=== PATIENT | female | born 1960 | race Caucasian/White ===

== ENCOUNTER 2018-01-15 13:34 | Emergency (ER) | payer OTHER ==
[~2018-01-15] VITALS: Ht 165.1 cm; Wt 127.3 kg
[2018-01-15 13:38] VITALS: BP 151/81
[2018-01-15] MEDS ORDERED: KETOROLAC 30 MG/1 ML IM ONE (14:00)
[2018-01-15] MEDS ORDERED: KETOROLAC 30 MG/1 ML ONE (14:08)
== END 2018-01-15 14:57 | disposition home or self-care (01) ==
LOC: ED 14:55
DX: S46.012A Strain of muscle(s) and tendon(s) of the rotator cuff of left shoulder, initial encounter (principal); X58.XXXA Exposure to other specified factors, initial encounter; Y93.89 Activity, other specified; Y92.89 Other specified places as the place of occurrence of the external cause; Y99.8 Other external cause status; I10 Essential (primary) hypertension; Z87.891 Personal history of nicotine dependence
CPT/HCPCS: 73030; 96372; 99284; J1885

== ENCOUNTER 2018-02-04 08:26 | Inpatient (IN) | payer OTHER ==
[~2018-02-04] VITALS: Ht 170.2 cm; Wt 119.7 kg
[~2018-02-04 08:26] MED LIST: CIME200T6 PO; FLUO40CA2 PO; METH20TA5 PO; OLAN20TA7 PO; ZOLP10TA5 PO
[2018-02-04] MEDS ORDERED: ALBUTEROL/IPRATROPIUM 2.5MG/0.5MG, 3 ML NPPB ONE (09:00)
[2018-02-04] MEDS ORDERED: SODIUM CHLORIDE FLUSH 10ML SYR IVF ONE ×2 (09:00→12:00)
[2018-02-04] MEDS ORDERED: ALBUTEROL/IPRATROPIUM 2.5MG/0.5MG, 3 ML ONE ×2 (09:04→14:43)
[2018-02-04 10:21] LABS: MEAN CORPUSCULAR HEMOGLOBIN 31.6 pg (27.0-34.8); MEAN CORPUSCULAR HGB CONC 33.2 g/dL (32.4-35.8); MEAN CORPUSCULAR VOLUME 95.1 fL (80-100); MEAN PLATELET VOLUME 7.9 fL (7.4-10.4); PLATELET COUNT 332 x10^3/uL (130-400); RED BLOOD COUNT 3.59 x10^6/uL (3.82-5.3); RED CELL DISTRIBUTION WIDTH 15.3 % (9.6-15.2)
[2018-02-04 10:30] LABS: ALANINE AMINOTRANSFERASE 15 U/L (12-78); ALBUMIN 2.2 g/dL (3.4-5.0); ANION GAP 6 mmol/L (5-15); CALCIUM 9.2 mg/dL (8.5-10.1); CHLORIDE 107 mmol/L (98-107); CREATININE 1.03 mg/dL (0.55-1.02)
[2018-02-04 10:35] LABS: ALKALINE PHOSPHATASE 81 U/L (45-117); BILIRUBIN,TOTAL 0.3 mg/dL (0.2-1.0); TOTAL PROTEIN 6.8 g/dL (6.4-8.2); TROPONIN I < 0.015 ng/mL (0.000-0.045)
[2018-02-04 10:37] LABS: BASOPHILS # (AUTO) 0.01 x10^3/uL (0-0.1); BASOPHILS % (AUTO) 0 % (0-1); EOSINOPHILS # (AUTO) 0.15 x10^3/uL (0-0.4); EOSINOPHILS % (AUTO) 1 % (1-7); LYMPHOCYTES # (AUTO) 1.71 x10^3/uL (1-3.4); LYMPHOCYTES % (AUTO) 11 % (22-44); MD SCAN; MONOCYTES # (AUTO) 1.39 x10^3/uL (0.2-0.8); MONOCYTES % (AUTO) 9 % (2-9); NEUTROPHILS # (AUTO) 12.81 x10^3/uL (1.8-6.8); NEUTROPHILS % (AUTO) 80 % (42-75)
[2018-02-04 12:54] VITALS: BP 142/72
[2018-02-04] MEDS ORDERED: HYDROcodone/APAP 5/325 TABLET PO PRN (14:30)
[2018-02-04] MEDS ORDERED: ACETAMINOPHEN 325 MG TABLET PO PRN (14:30)
[2018-02-04] MEDS ORDERED: morphine SULFATE 10 MG/ML, 1ML IVPush PRN (14:30)
[2018-02-04] MEDS ORDERED: ZOLPIDEM 5MG TABLET PO PRN (14:30)
[2018-02-04] MEDS ORDERED: ONDANSETRON ODT 4 MG PO PRN (14:30)
[2018-02-04] MEDS ORDERED: ALBUTEROL/IPRATROPIUM 2.5MG/0.5MG, 3 ML NPPB PRN (15:00)
[2018-02-04] MEDS: GUAIFENESIN/DM 200-20MG, 10ML UDC PO PRN ×2 (15:14→22:46)
[2018-02-04] MEDS: ENOXAPARIN 40 MG/0.4 ML SQ SCH (15:14)
[2018-02-04] MEDS: ALBUTEROL/IPRATROPIUM 2.5MG/0.5MG, 3 ML NPPB SCH (20:00)
[2018-02-04 20:22] VITALS: BP 154/84
[2018-02-04] MEDS: SODIUM CHLORIDE FLUSH 10ML SYR IVF SCH (22:45)
[2018-02-04] MEDS: LACTULOSE 10 GM/15 ML UDC PO SCH (22:46)
[2018-02-05 02:13] VITALS: BP 148/85
[2018-02-05 05:09] LABS: BASOPHILS # (AUTO) 0.01 x10^3/uL (0-0.1); BASOPHILS % (AUTO) 0 % (0-1); EOSINOPHILS # (AUTO) 0.24 x10^3/uL (0-0.4); EOSINOPHILS % (AUTO) 2 % (1-7); LYMPHOCYTES # (AUTO) 1.82 x10^3/uL (1-3.4); LYMPHOCYTES % (AUTO) 13 % (22-44); MD NO; MEAN CORPUSCULAR HEMOGLOBIN 31.8 pg (27.0-34.8); MEAN CORPUSCULAR HGB CONC 33.7 g/dL (32.4-35.8); MEAN CORPUSCULAR VOLUME 94.2 fL (80-100); MEAN PLATELET VOLUME 7.9 fL (7.4-10.4); MONOCYTES # (AUTO) 1.28 x10^3/uL (0.2-0.8); MONOCYTES % (AUTO) 9 % (2-9); NEUTROPHILS # (AUTO) 10.82 x10^3/uL (1.8-6.8); NEUTROPHILS % (AUTO) 76 % (42-75); PLATELET COUNT 310 x10^3/uL (130-400); RED BLOOD COUNT 3.28 x10^6/uL (3.82-5.3); RED CELL DISTRIBUTION WIDTH 14.9 % (9.6-15.2)
[2018-02-05 05:41] LABS: ALANINE AMINOTRANSFERASE 11 U/L (12-78); ALBUMIN 1.8 g/dL (3.4-5.0); ALKALINE PHOSPHATASE 75 U/L (45-117); BILIRUBIN,TOTAL 0.3 mg/dL (0.2-1.0); CALCIUM 8.5 mg/dL (8.5-10.1); CREATININE 0.68 mg/dL (0.55-1.02); TOTAL PROTEIN 6.2 g/dL (6.4-8.2)
[2018-02-05 05:45] LABS: ANION GAP 7 mmol/L (5-15); CHLORIDE 108 mmol/L (98-107)
[2018-02-05] MEDS: ALBUTEROL/IPRATROPIUM 2.5MG/0.5MG, 3 ML NPPB SCH ×4 (07:20→19:27)
[2018-02-05] MEDS: SODIUM CHLORIDE FLUSH 10ML SYR IVF SCH ×2 (07:38→20:34)
[2018-02-05] MEDS: LACTULOSE 10 GM/15 ML UDC PO SCH ×2 (07:38→21:00)
[2018-02-05] MEDS: OLANZAPINE 10 MG TABLET PO SCH (07:38)
[2018-02-05] MEDS: METHYLPHENIDATE 10 MG TABLET PO SCH (07:38)
[2018-02-05] MEDS: FLUOXETINE HCL 20 MG CAPSULE PO SCH (07:38)
[2018-02-05 07:58] VITALS: BP 163/84
[2018-02-05] MEDS ORDERED: POTASSIUM CHLORIDE 20 MEQ TAB.ER.PRT PO SCH (09:30)
[2018-02-05] MEDS ORDERED: CEFTRIAXONE 2 GM in SODIUM CHLORIDE 0.9% 50 ML IV SCH (09:30)
[2018-02-05] MEDS: CEFTRIAXONE 2 GM in DEXTROSE 5% 50 ML IV SCH (09:31)
[2018-02-05] MEDS: FUROSEMIDE 40 MG TABLET PO SCH (09:32)
[2018-02-05 12:40] LABS: HEMOGLOBIN A1C 6.4 % (4.2-6.3)
[2018-02-05 13:49] VITALS: BP 166/98
[2018-02-05] MEDS: ENOXAPARIN 40 MG/0.4 ML SQ SCH (14:35)
[2018-02-05 19:05] VITALS: BP 150/80
[2018-02-05] MEDS ORDERED: MORPHINE SULFATE 4 MG/ML, 1ML ONE (20:27)
[2018-02-06 00:39] VITALS: BP 149/83
[2018-02-06 06:09] LABS: CHLORIDE 102 mmol/L (98-107)
[2018-02-06 06:13] LABS: MEAN CORPUSCULAR HEMOGLOBIN 31.7 pg (27.0-34.8); MEAN CORPUSCULAR HGB CONC 33.6 g/dL (32.4-35.8); MEAN CORPUSCULAR VOLUME 94.2 fL (80-100); MEAN PLATELET VOLUME 8.8 fL (7.4-10.4); PLATELET COUNT 320 x10^3/uL (130-400); RED BLOOD COUNT 3.22 x10^6/uL (3.82-5.3); RED CELL DISTRIBUTION WIDTH 14.9 % (9.6-15.2)
[2018-02-06 06:24] LABS: ALANINE AMINOTRANSFERASE 14 U/L (12-78); ALBUMIN 1.8 g/dL (3.4-5.0); ALKALINE PHOSPHATASE 81 U/L (45-117); ANION GAP 9 mmol/L (5-15); BILIRUBIN,TOTAL 0.5 mg/dL (0.2-1.0); CALCIUM 8.8 mg/dL (8.5-10.1); CREATININE 0.67 mg/dL (0.55-1.02); TOTAL PROTEIN 6.5 g/dL (6.4-8.2)
[2018-02-06 06:41] LABS: BASOPHILS # (AUTO) 0.06 x10^3/uL (0-0.1); BASOPHILS % (AUTO) 0 % (0-1); EOSINOPHILS # (AUTO) 0.19 x10^3/uL (0-0.4); EOSINOPHILS % (AUTO) 1 % (1-7); LYMPHOCYTES # (AUTO) 1.82 x10^3/uL (1-3.4); LYMPHOCYTES % (AUTO) 13 % (22-44); MD SCAN; MONOCYTES # (AUTO) 1.54 x10^3/uL (0.2-0.8); MONOCYTES % (AUTO) 11 % (2-9); NEUTROPHILS # (AUTO) 9.94 x10^3/uL (1.8-6.8); NEUTROPHILS % (AUTO) 73 % (42-75)
[2018-02-06 07:38] VITALS: BP 136/76
[2018-02-06] MEDS: ALBUTEROL/IPRATROPIUM 2.5MG/0.5MG, 3 ML NPPB SCH ×4 (07:53→19:25)
[2018-02-06] MEDS: CEFTRIAXONE 2 GM in DEXTROSE 5% 50 ML IV SCH (09:46)
[2018-02-06] MEDS: LACTULOSE 10 GM/15 ML UDC PO SCH ×3 (09:56→20:40)
[2018-02-06] MEDS: SPIRONOLACTONE 25 MG TABLET PO SCH ×2 (09:56→15:18)
[2018-02-06] MEDS: FUROSEMIDE 40 MG TABLET PO SCH ×2 (09:57→15:18)
[2018-02-06] MEDS: SODIUM CHLORIDE FLUSH 10ML SYR IVF SCH ×2 (09:57→20:40)
[2018-02-06] MEDS: METHYLPHENIDATE 10 MG TABLET PO SCH ×2 (09:57→15:18)
[2018-02-06] MEDS: FLUOXETINE HCL 20 MG CAPSULE PO SCH ×2 (09:57→15:17)
[2018-02-06] MEDS: OLANZAPINE 10 MG TABLET PO SCH ×2 (09:57→15:18)
[2018-02-06 13:13] VITALS: BP 141/72
[2018-02-06] MEDS ORDERED: ZOLPIDEM 10MG TABLET PO PRN (14:00)
[2018-02-06] MEDS: ENOXAPARIN 40 MG/0.4 ML SQ SCH (15:19)
[2018-02-06 18:55] VITALS: BP 145/85
[2018-02-06 23:49] VITALS: BP 143/69
[2018-02-07 05:46] LABS: MEAN CORPUSCULAR HEMOGLOBIN 31.6 pg (27.0-34.8); MEAN CORPUSCULAR HGB CONC 33.7 g/dL (32.4-35.8); MEAN CORPUSCULAR VOLUME 93.6 fL (80-100); MEAN PLATELET VOLUME 8.4 fL (7.4-10.4); PLATELET COUNT 347 x10^3/uL (130-400); RED BLOOD COUNT 3.24 x10^6/uL (3.82-5.3); RED CELL DISTRIBUTION WIDTH 14.5 % (9.6-15.2)
[2018-02-07 05:59] LABS: CHLORIDE 103 mmol/L (98-107)
[2018-02-07 06:08] LABS: ALANINE AMINOTRANSFERASE 15 U/L (12-78); ALBUMIN 1.9 g/dL (3.4-5.0); ALKALINE PHOSPHATASE 80 U/L (45-117); ANION GAP 7 mmol/L (5-15); BILIRUBIN,TOTAL 0.5 mg/dL (0.2-1.0); CALCIUM 8.7 mg/dL (8.5-10.1); CHOLESTEROL, TOTAL 95 mg/dL (140-239); CREATININE 0.73 mg/dL (0.55-1.02); HDL CHOL % 20 % (28-40); HDL CHOLESTEROL (DIRECT) 19 mg/dL (40-60); LDL CHOLESTEROL,CALCULATED 53 mg/dL (54-169); LDL/HDL RATIO 2.8 (0.5-3.0); TOTAL PROTEIN 6.6 g/dL (6.4-8.2); TRIGLYCERIDES 113 mg/dL (50-200); VLDL CHOLESTEROL 23 mg/dL (0-25)
[2018-02-07 06:21] LABS: BASOPHILS # (AUTO) 0.06 x10^3/uL (0-0.1); BASOPHILS % (AUTO) 0 % (0-1); EOSINOPHILS % (AUTO) 2 % (1-7); LYMPHOCYTES # (AUTO) 2.01 x10^3/uL (1-3.4); LYMPHOCYTES % (AUTO) 15 % (22-44); MD SCAN; MONOCYTES # (AUTO) 1.53 x10^3/uL (0.2-0.8); MONOCYTES % (AUTO) 11 % (2-9); NEUTROPHILS # (AUTO) 9.97 x10^3/uL (1.8-6.8); NEUTROPHILS % (AUTO) 72 % (42-75)
[2018-02-07] MEDS: ALBUTEROL/IPRATROPIUM 2.5MG/0.5MG, 3 ML NPPB SCH ×4 (06:30→19:49)
[2018-02-07 07:10] VITALS: BP 139/84
[2018-02-07] MEDS: LACTULOSE 10 GM/15 ML UDC PO SCH ×2 (08:24→20:03)
[2018-02-07] MEDS: FUROSEMIDE 40 MG TABLET PO SCH (08:25)
[2018-02-07] MEDS: OLANZAPINE 10 MG TABLET PO SCH (08:25)
[2018-02-07] MEDS: METHYLPHENIDATE 10 MG TABLET PO SCH (08:25)
[2018-02-07] MEDS: SPIRONOLACTONE 25 MG TABLET PO SCH (08:26)
[2018-02-07] MEDS: FLUOXETINE HCL 20 MG CAPSULE PO SCH (08:26)
[2018-02-07] MEDS: SODIUM CHLORIDE FLUSH 10ML SYR IVF SCH ×2 (08:26→20:03)
[2018-02-07] MEDS: CEFTRIAXONE 2 GM in DEXTROSE 5% 50 ML IV SCH (09:53)
[2018-02-07 13:04] VITALS: BP 131/84
[2018-02-07] MEDS: ENOXAPARIN 40 MG/0.4 ML SQ SCH (15:51)
[2018-02-07 19:57] VITALS: BP 118/77
[2018-02-08 01:07] VITALS: BP 125/78
[2018-02-08 05:12] LABS: BASOPHILS # (AUTO) 0.05 x10^3/uL (0-0.1); BASOPHILS % (AUTO) 0 % (0-1); EOSINOPHILS # (AUTO) 0.38 x10^3/uL (0-0.4); EOSINOPHILS % (AUTO) 3 % (1-7); LYMPHOCYTES # (AUTO) 2.19 x10^3/uL (1-3.4); LYMPHOCYTES % (AUTO) 17 % (22-44); MD NO; MEAN CORPUSCULAR HEMOGLOBIN 30.9 pg (27.0-34.8); MEAN CORPUSCULAR HGB CONC 33.1 g/dL (32.4-35.8); MEAN CORPUSCULAR VOLUME 93.6 fL (80-100); MEAN PLATELET VOLUME 8.9 fL (7.4-10.4); MONOCYTES # (AUTO) 1.33 x10^3/uL (0.2-0.8); MONOCYTES % (AUTO) 10 % (2-9); NEUTROPHILS # (AUTO) 9.07 x10^3/uL (1.8-6.8); NEUTROPHILS % (AUTO) 70 % (42-75); PLATELET COUNT 370 x10^3/uL (130-400); RED BLOOD COUNT 3.04 x10^6/uL (3.82-5.3); RED CELL DISTRIBUTION WIDTH 14.7 % (9.6-15.2)
[2018-02-08 05:20] LABS: CHLORIDE 103 mmol/L (98-107)
[2018-02-08 05:28] LABS: ALANINE AMINOTRANSFERASE 15 U/L (12-78); ALBUMIN 1.9 g/dL (3.4-5.0); ALKALINE PHOSPHATASE 81 U/L (45-117); ANION GAP 6 mmol/L (5-15); BILIRUBIN,TOTAL 0.4 mg/dL (0.2-1.0); CALCIUM 8.5 mg/dL (8.5-10.1); CREATININE 0.77 mg/dL (0.55-1.02); TOTAL PROTEIN 6.6 g/dL (6.4-8.2)
[2018-02-08] MEDS: ALBUTEROL/IPRATROPIUM 2.5MG/0.5MG, 3 ML NPPB SCH (07:00)
[2018-02-08 08:35] VITALS: BP 118/66
[2018-02-08] MEDS: FLUOXETINE HCL 20 MG CAPSULE PO SCH (08:38)
[2018-02-08] MEDS: OLANZAPINE 10 MG TABLET PO SCH (08:39)
[2018-02-08] MEDS: METHYLPHENIDATE 10 MG TABLET PO SCH (08:40)
[2018-02-08] MEDS: SPIRONOLACTONE 25 MG TABLET PO SCH (08:40)
[2018-02-08] MEDS: SODIUM CHLORIDE FLUSH 10ML SYR IVF SCH (08:41)
[2018-02-08] MEDS: LACTULOSE 10 GM/15 ML UDC PO SCH (08:41)
[2018-02-08] MEDS: FUROSEMIDE 40 MG TABLET PO SCH (08:41)
[2018-02-08] MEDS: CEFTRIAXONE 2 GM in DEXTROSE 5% 50 ML IV SCH (09:59)
[2018-02-08 14:00] VITALS: BP 113/77
[2018-02-08] MEDS ORDERED: SPIR25TA PO (14:17)
[2018-02-08] MEDS: ENOXAPARIN 40 MG/0.4 ML SQ SCH (14:30)
[2018-02-08] MEDS ORDERED: CEPH-368 PO (16:37)
[2018-02-08] MEDS ORDERED: FERR325T5 PO (16:40)
== END 2018-02-08 19:08 | DRG 871 ==
LOC: ED 09:28 → EDIP 11:38 → 4EST 12:23
PROVIDERS: ADMIT Internal Medicine; ATTEND Internal Medicine
DX: A41.9 Sepsis, unspecified organism (principal); K85.90 Acute pancreatitis without necrosis or infection, unspecified; J96.91 Respiratory failure, unspecified with hypoxia; I50.21 Acute systolic (congestive) heart failure; E46 Unspecified protein-calorie malnutrition; J18.9 Pneumonia, unspecified organism; I11.0 Hypertensive heart disease with heart failure; L03.116 Cellulitis of left lower limb; Z68.41 Body mass index [BMI] 40.0-44.9, adult; Z68.42 Body mass index [BMI] 45.0-49.9, adult; E11.65 Type 2 diabetes mellitus with hyperglycemia; E66.9 Obesity, unspecified; Z88.0 Allergy status to penicillin; D63.8 Anemia in other chronic diseases classified elsewhere; F17.210 Nicotine dependence, cigarettes, uncomplicated; F31.9 Bipolar disorder, unspecified; F98.8 Other specified behavioral and emotional disorders with onset usually occurring in childhood and adolescence; I89.0 Lymphedema, not elsewhere classified; K59.00 Constipation, unspecified; R29.6 Repeated falls
CPT/HCPCS: 36415; 71045; 71250; 74150; 80053; 80061; 82150; 83036; 83605; 83690; 83880; 84443; 84484; 85025; 87040; 93005; 93970; 94640; 99285; J0696; J1650; J7620; J2270

== ENCOUNTER → 2019-09-02 | Outpatient (CLI) | payer MEDICARE ==
[~2019-09-02] MED LIST changes: +AMLO10TA8 PO; +BUME2TAB3 PO; +CEPH-368 PO; +DIVA250T4 PO; +FERR325T5 PO; +HYDR-3652 PO; +INSU100I11 SQ-INSULIN; +IPRA3AMP30 NPPB; +LOSA1TAB25 PO; +LOSA50TA14 PO; +OLAN10TA9 PO; +OLAN20TA14 PO; -OLAN20TA7 PO; +SPIR25TA PO; +SPIR25TA5 PO; +SULFAMETH PO; +TRIMETHOPRIM PO; +VANC1VIA3 PO
== END | disposition home or self-care (01) ==
LOC: CFH 10:30
PROVIDERS: ATTEND Internal Medicine
DX: Z12.31 Encounter for screening mammogram for malignant neoplasm of breast (principal)
CPT/HCPCS: 77067

== ENCOUNTER 2020-06-22 23:44 | Observation (INO) | payer MEDICARE ==
[~2020-06-22] VITALS: Ht 172.7 cm; Wt 89.8 kg
[2020-06-23] MEDS ORDERED: ACETAMINOPHEN 325 MG TABLET ONE (00:14)
--- NOTE | 2020-06-23 00:20 | NUR ---
PATIENT BIB EMS FROM HOME, CALLED FOR C/O ALOC. PRESENTS IN ED A/OX2, FEBRILE, MAEX4 EQUALLY, DOSING INTERMITTENTLY BUT FOLLOWS COMMANDS. PATIENT PLACED IN GOWN, RIGHT KNEE OPEN WOUND NOTED ON ENTIRE KNEE CAP, PATIENT STATES PREVIOUS FALL. PLEASANTLY CCONFUSED. ALL MONITORS PLACED, STRAIGHT CATH WALKED TO LAB, SEEN BY DR. GARZON, MEDICATED PER EMAR. ALL SAFETY MEASURES IN PLACE.
[2020-06-23] MEDS ORDERED: CEFTRIAXONE PMX 1GM/50ML 50 ML ONE (00:25)
[2020-06-23 00:28] LABS: MICROSCOPIC AUTO
[2020-06-23] MEDS ORDERED: CEFTRIAXONE PMX 1GM/50ML 50 ML IV ONE (00:30)
[2020-06-23] MEDS ORDERED: ACETAMINOPHEN 325 MG TABLET PO ONE (00:30)
[2020-06-23 00:53] LABS: BASOPHILS # (AUTO) 0.01 x10^3/uL (0-0.1); BASOPHILS % (AUTO) 0 % (0-1); EOSINOPHILS # (AUTO) 0.02 x10^3/uL (0-0.4); EOSINOPHILS % (AUTO) 0 % (1-7); LYMPHOCYTES # (AUTO) 1.09 x10^3/uL (1-3.4); LYMPHOCYTES % (AUTO) 9 % (22-44); MD NO; MEAN CORPUSCULAR HEMOGLOBIN 31.4 pg (27.0-34.8); MEAN PLATELET VOLUME 9.9 fL (7.4-10.4); MONOCYTES # (AUTO) 1.24 x10^3/uL (0.2-0.8); MONOCYTES % (AUTO) 10 % (2-9); NEUTROPHILS # (AUTO) 9.93 x10^3/uL (1.8-6.8); NEUTROPHILS % (AUTO) 81 % (42-75); PLATELET COUNT 143 x10^3/uL (130-400); RED BLOOD COUNT 3.26 x10^6/uL (3.82-5.3); RED CELL DISTRIBUTION WIDTH 15.3 % (9.6-15.2)
--- NOTE | 2020-06-23 00:58 | NUR ---
2 SETS OF BLOOD CULTURES DRAWN. ANTIBIOTIC GIVEN PER EMAR
[2020-06-23 01:05] LABS: ALANINE AMINOTRANSFERASE 12 U/L (12-78); ALBUMIN 3.2 g/dL (3.4-5.0); ANION GAP 5 mmol/L (5-15); CALCIUM 9.5 mg/dL (8.5-10.1); CHLORIDE 106 mmol/L (98-107); CREATININE 1.68 mg/dL (0.55-1.02)
[2020-06-23 01:07] LABS: ALKALINE PHOSPHATASE 81 U/L (45-117); BILIRUBIN,TOTAL 0.5 mg/dL (0.2-1.0); TOTAL PROTEIN 7.9 g/dL (6.4-8.2)
--- NOTE | 2020-06-23 03:38 | NUR ---
PATIENT SLEEPING IN BED, NO S/S OF DISTRESS, ALL SAFETY MEASURES IN PLACE.
[2020-06-23] MEDS ORDERED: SODIUM CHLORIDE 0.9% 1,000 ML IV SCH (05:04)
[2020-06-23] MEDS ORDERED: HYDR-3237 PO (05:07)
[2020-06-23] MEDS ORDERED: FLUO40CA2 PO (05:10)
[2020-06-23] MEDS ORDERED: DIVA-61 PO ×2 (05:11→08:04)
--- NOTE | 2020-06-23 05:11 | NUR ---
POCKET KNIFE FOUND IN PT. BELONGINGS; SECURITY CAME TO ONLINE ADVERTISING MANAGER FOR SAFEKEEPING; PT. MADE AWARE SHE WILL HAVE TO ONLINE ADVERTISING MANAGER KNIFE WHEN SHE IS DISCHARED; VERBALIZED UNDERSTANDING. PT. ALSO EXPRESSING CONCERN OVER HER GETTING TO DIALYSIS TODAY. SHE STATES "HE CAN'T DRIVE, I AM THE ONE THAT DRIVES HIM, I DON'T HAVE A PHONE TO CALL HIM AND HE HAS DIALYSIS AT 2:15 THIS EVENING." PT. REMAINS SOMEWHAT CONFUSED; STATES THAT IT IS SUNDAY AND HER HAS TO GET TO DIALYSIS; HOWEVER PT. DOESN'T REMEMBER GETTING TO HOSPITAL AND THINKS THAT HER IS HERE WITH HER. OFFERED REASSUREANCE TO PT. AND DISCUSSED POC. PT. DID VERBALIZE UNDERSTANDING.
[2020-06-23] MEDS ORDERED: OLAN10TA9 PO (05:12)
[2020-06-23] MEDS ORDERED: TEMA30CA PO (05:13)
[2020-06-23] MEDS ORDERED: LOSA1TAB25 PO (05:16)
[2020-06-23] MEDS ORDERED: METHYLPHENIDATE PO (05:16)
--- NOTE | 2020-06-23 05:17 | NUR ---
MED REC COMPLETED FROM BOTTLES BROUGHT IN BY EMS. EMS STATED MANY MORE BOTTLES STILL AT HOME
[2020-06-23] MEDS ORDERED: POLYETHYLENE GLYCOL 17 GM PACKET PO PRN (05:30)
[2020-06-23] MEDS ORDERED: PROMETHAZINE 25 MG/ML, 1ML IM PRN (05:30)
[2020-06-23] MEDS ORDERED: ONDANSETRON 2MG/ML, 2ML IVPush PRN (05:30)
[2020-06-23] MEDS ORDERED: morphine SULFATE 10 MG/ML, 1ML IVPush PRN (05:30)
[2020-06-23] MEDS ORDERED: ONDANSETRON ODT 4 MG PO PRN (05:30)
[2020-06-23] MEDS ORDERED: hydrALAzine 20 MG/ML, 1ML IVPush PRN (05:30)
[2020-06-23] MEDS ORDERED: OXYcodone IR 5MG TABLET PO PRN (05:30)
[2020-06-23] MEDS ORDERED: ACETAMINOPHEN 325 MG TABLET PO PRN (05:30)
[2020-06-23] MEDS ORDERED: DOCUSATE 100 MG CAPSULE PO PRN (05:30)
[2020-06-23] MEDS ORDERED: ENOXAPARIN 40 MG/0.4 ML SQ SCH (05:30)
[2020-06-23] MEDS ORDERED: BISACODYL 10 MG SUPP PR PRN (05:30)
[2020-06-23 05:55] LABS: FREE T4 (FREE THYROXINE) 1.25 ng/dL (0.76-1.46)
[2020-06-23] MEDS ORDERED: ENOXAPARIN 40 MG/0.4 ML ONE (06:12)
--- NOTE | 2020-06-23 06:49 | NUR ---
TOOK BAG OF PT'S MEDS TO PHARMACY. PHARMACY STATED THEY ARE UNABLE TO KEEP MEDICATIONS DUE TO COVID CONCERNS. HOWEVER, PHARMACY STATED THEY MUST KEEP PT'S HYDROCODONE. PILLS COUNTED AND YELLOW SLIP GIVEN. WILL SEND UP MEDS WITH YELLOW SLIP UP TO THE FLOOR
--- NOTE | 2020-06-23 06:52 | NUR ---
REPORT TO HAN SALINAS. FLOOR READY FOR PT. TRANSPORT. HAN SALINAS AWARE OF PT.'S WORRY ABOUT GETTING TO DIALYSIS, KNIFE BEING IN SECURITY, MEDS IN PHARMACY, AND INABILITY TO FULLY COMPLETE MED REQ.
[2020-06-23] MEDS ORDERED: CEFTRIAXONE PMX 1GM/50ML 50 ML IV SCH (07:30)
--- NOTE | 2020-06-23 07:51 | NUR ---
RESTING WITH EYES CLOSED, AWAITING TRANSPORT
[2020-06-23 08:13] VITALS: BP 121/75
[2020-06-23] MEDS: INSULIN LISPRO 100 UNITS/ML, PEN SQ-INSULIN SCH ×4 (08:19→20:37)
[2020-06-23] MEDS ORDERED: ALBUTEROL/IPRATROPIUM 2.5MG/0.5MG, 3 ML NPPB PRN (08:30)
[2020-06-23] MEDS ORDERED: HYDROcodone/APAP 5/325 TABLET PO PRN (08:30)
[2020-06-23] MEDS: SODIUM CHLORIDE 0.9% 1,000 ML IV SCH (09:00)
[2020-06-23] MEDS: METHYLPHENIDATE 10 MG TABLET PO SCH (10:17)
[2020-06-23] MEDS: DIVALPROEX 500 MG TABLET.DR PO SCH ×2 (10:17→20:37)
[2020-06-23] MEDS: DOXYCYCLINE 100 MG in DEXTROSE 5% 250 ML IV SCH ×2 (10:20→21:59)
[2020-06-23] MEDS ORDERED: OLAN20TA3 PO (10:32)
[2020-06-23] MEDS ORDERED: FLUO20CA23 PO (10:32)
[2020-06-23] MEDS ORDERED: INSULIN LISPRO 100 UNITS/ML, PEN SQ-INSULIN SCH (11:00)
[2020-06-23] MEDS ORDERED: OLANZAPINE 10 MG TABLET PO SCH (11:00)
[2020-06-23] MEDS: FLUOXETINE HCL 20 MG CAPSULE PO SCH (11:08)
[2020-06-23 13:44] VITALS: BP 124/76
[2020-06-23] MEDS: OLANZAPINE 10 MG TABLET PO SCH (20:35)
[2020-06-23] MEDS: TEMAZEPAM 30 MG CAPSULE PO SCH (20:36)
[2020-06-23 20:57] VITALS: BP 138/83
[2020-06-24 00:35] VITALS: BP 140/82
[2020-06-24] MEDS: SODIUM CHLORIDE 0.9% 1,000 ML IV SCH ×2 (00:40→15:45)
[2020-06-24] MEDS: CEFTRIAXONE PMX 1GM/50ML 50 ML IV SCH (01:56)
[2020-06-24 06:26] LABS: ALBUMIN 2.4 g/dL (3.4-5.0); ANION GAP 8 mmol/L (5-15); CALCIUM 9.2 mg/dL (8.5-10.1); CHLORIDE 109 mmol/L (98-107)
[2020-06-24 06:31] LABS: ALANINE AMINOTRANSFERASE 9 U/L (12-78); ALKALINE PHOSPHATASE 72 U/L (45-117); BILIRUBIN,TOTAL 0.2 mg/dL (0.2-1.0); CHOL/HDL RATIO 4.2; CHOLESTEROL, TOTAL 138 mg/dL (140-239); CREATININE 1.41 mg/dL (0.55-1.02); HDL CHOL % 24 % (28-40); HDL CHOLESTEROL (DIRECT) 33 mg/dL (40-60); LDL CHOLESTEROL,CALCULATED 83 mg/dL (54-169); LDL/HDL RATIO 2.5 (0.5-3.0); TRIGLYCERIDES 110 mg/dL (50-200); VLDL CHOLESTEROL 22 mg/dL (0-25)
[2020-06-24 06:33] LABS: BASOPHILS # (AUTO) 0.03 x10^3/uL (0-0.1); BASOPHILS % (AUTO) 0 % (0-1); EOSINOPHILS # (AUTO) 0.01 x10^3/uL (0-0.4); EOSINOPHILS % (AUTO) 0 % (1-7); LYMPHOCYTES # (AUTO) 1.15 x10^3/uL (1-3.4); LYMPHOCYTES % (AUTO) 11 % (22-44); MD NO; MEAN CORPUSCULAR HGB CONC 31.8 g/dL (32.4-35.8); MEAN PLATELET VOLUME 10.2 fL (7.4-10.4); MONOCYTES # (AUTO) 1.25 x10^3/uL (0.2-0.8); MONOCYTES % (AUTO) 12 % (2-9); NEUTROPHILS # (AUTO) 8.45 x10^3/uL (1.8-6.8); NEUTROPHILS % (AUTO) 78 % (42-75); PLATELET COUNT 142 x10^3/uL (130-400); RED BLOOD COUNT 3.24 x10^6/uL (3.82-5.3); RED CELL DISTRIBUTION WIDTH 14.9 % (9.6-15.2)
[2020-06-24] MEDS: INSULIN LISPRO 100 UNITS/ML, PEN SQ-INSULIN SCH ×4 (07:00→21:00)
[2020-06-24 07:33] VITALS: BP 123/79
[2020-06-24] MEDS: METHYLPHENIDATE 10 MG TABLET PO SCH (08:50)
[2020-06-24] MEDS: FLUOXETINE HCL 20 MG CAPSULE PO SCH (08:50)
[2020-06-24] MEDS: DOXYCYCLINE 100 MG in DEXTROSE 5% 250 ML IV SCH (08:50)
[2020-06-24] MEDS: DIVALPROEX 500 MG TABLET.DR PO SCH ×2 (08:50→21:09)
[2020-06-24] MEDS: HEPARIN 5,000 UNITS/ML, 1ML SQ SCH ×2 (08:54→16:08)
[2020-06-24 14:04] VITALS: BP 113/72
[2020-06-24 19:41] VITALS: BP 128/70
[2020-06-24] MEDS ORDERED: OLANZAPINE 5 MG TABLET ONE ×2 (21:06→21:14)
[2020-06-24] MEDS: OLANZAPINE 10 MG TABLET PO SCH (21:09)
[2020-06-24] MEDS: TEMAZEPAM 30 MG CAPSULE PO SCH (21:09)
[2020-06-25 00:43] VITALS: BP 144/82
[2020-06-25] MEDS: HEPARIN 5,000 UNITS/ML, 1ML SQ SCH ×2 (01:28→08:35)
[2020-06-25] MEDS: CEFTRIAXONE PMX 1GM/50ML 50 ML IV SCH (01:28)
[2020-06-25] MEDS: SODIUM CHLORIDE 0.9% 1,000 ML IV SCH (06:16)
[2020-06-25 06:26] LABS: BASOPHILS # (AUTO) 0.02 x10^3/uL (0-0.1); BASOPHILS % (AUTO) 0 % (0-1); EOSINOPHILS # (AUTO) 0.07 x10^3/uL (0-0.4); EOSINOPHILS % (AUTO) 1 % (1-7); LYMPHOCYTES # (AUTO) 2.13 x10^3/uL (1-3.4); LYMPHOCYTES % (AUTO) 25 % (22-44); MD NO; MEAN CORPUSCULAR HEMOGLOBIN 31.3 pg (27.0-34.8); MEAN CORPUSCULAR HGB CONC 32.3 g/dL (32.4-35.8); MEAN PLATELET VOLUME 10.1 fL (7.4-10.4); MONOCYTES % (AUTO) 12 % (2-9); NEUTROPHILS # (AUTO) 5.18 x10^3/uL (1.8-6.8); NEUTROPHILS % (AUTO) 62 % (42-75); PLATELET COUNT 163 x10^3/uL (130-400); RED BLOOD COUNT 3.26 x10^6/uL (3.82-5.3)
[2020-06-25 06:30] LABS: ALBUMIN 2.3 g/dL (3.4-5.0); ANION GAP 7 mmol/L (5-15); CALCIUM 9.1 mg/dL (8.5-10.1); CHLORIDE 111 mmol/L (98-107)
[2020-06-25 06:35] LABS: ALANINE AMINOTRANSFERASE 10 U/L (12-78); ALKALINE PHOSPHATASE 67 U/L (45-117); BILIRUBIN,TOTAL 0.2 mg/dL (0.2-1.0); CREATININE 1.23 mg/dL (0.55-1.02); TOTAL PROTEIN 6.7 g/dL (6.4-8.2)
[2020-06-25] MEDS: INSULIN LISPRO 100 UNITS/ML, PEN SQ-INSULIN SCH ×2 (07:00→11:00)
[2020-06-25 07:39] VITALS: BP 139/81
[2020-06-25] MEDS: DIVALPROEX 500 MG TABLET.DR PO SCH (08:35)
[2020-06-25] MEDS: METHYLPHENIDATE 10 MG TABLET PO SCH (08:35)
[2020-06-25] MEDS: FLUOXETINE HCL 20 MG CAPSULE PO SCH (08:35)
[2020-06-25] MEDS ORDERED: CEFDINIR 300 MG CAPSULE PO SCH (09:00)
[2020-06-25] MEDS ORDERED: CEFD300C37 PO (11:02)
== END 2020-06-25 12:30 | disposition home or self-care (01) ==
LOC: ED 06-23 01:28 → INTOOBSV 06-23 01:37 → EDIP 06-23 01:37 → 4EST 06-23 08:06 → 4NE 06-24 17:26 → DCLOUNGE 06-25 12:23
PROVIDERS: ADMIT Internal Medicine; ATTEND Internal Medicine
DX: A41.9 Sepsis, unspecified organism (principal); Z20.828 Contact with and (suspected) exposure to other viral communicable diseases; G93.41 Metabolic encephalopathy; N17.9 Acute kidney failure, unspecified; E87.1 Hypo-osmolality and hyponatremia; I13.0 Hypertensive heart and chronic kidney disease with heart failure and stage 1 through stage 4 chronic kidney disease, or unspecified chronic kidney disease; J98.11 Atelectasis; N39.0 Urinary tract infection, site not specified; B96.20 Unspecified Escherichia coli [E. coli] as the cause of diseases classified elsewhere; R65.20 Severe sepsis without septic shock; D64.9 Anemia, unspecified; E11.22 Type 2 diabetes mellitus with diabetic chronic kidney disease; F31.9 Bipolar disorder, unspecified; I50.9 Heart failure, unspecified; N18.3 Chronic kidney disease, stage 3 (moderate); Z87.891 Personal history of nicotine dependence
CPT/HCPCS: 36415; 71045; 73564; 80053; 80061; 81001; 82962; 83036; 83605; 83735; 84439; 84443; 85025; 87040; 87077; 87086; 87186; 87635; 93005; 93970; 96361; 96365; 96366; 96367; 96368; 96372; 97161; 97165; 99291; G0378; J0696; J1644; J1650; J7030; J7060